=== PATIENT | female | born 1990 | race Caucasian/White ===

== ENCOUNTER → 2021-11-10 | Outpatient (CLI) | payer BC | LOC: M WHC 07:34 | DX: R16.0 Hepatomegaly, not elsewhere classified (principal) ==

== ENCOUNTER → 2022-01-20 | Outpatient (CLI) | payer BC ==
[2022-01-20 20:59] LABS: HEMOGLOBIN A1c 5.1 %
[2022-01-21 12:40] LABS: HIV 1&2 SCREEN CENTAUR NEGATIVE (NEGATIVE)
[2022-01-22 07:12] LABS: HSV TYPE I IgG SPECIFIC <0.91 index (0.00-0.90); HSV TYPE II IgG SPECIFIC <0.91 index (0.00-0.90)
== END ==
LOC: M PLALAB 15:02
DX: Z72.51 High risk heterosexual behavior (principal)

== ENCOUNTER → 2022-01-21 | Outpatient (CLI) | payer BC | LOC: M WUC 08:44 | PROVIDERS: ATTEND Student in an Organized Health Care Education/Training Program | DX: M25.572 Pain in left ankle and joints of left foot (principal) ==

== ENCOUNTER → 2023-02-03 | Outpatient (CLI) | payer OTHER ==
[2023-02-03 14:15] LABS: HEMOGLOBIN 12.3 g/dl (12.0-15.5); MEAN CORPUSCULAR HEMOGLOBIN 29.1 pg (27.0-33.0); MEAN CORPUSCULAR HGB CONC 32.4 g/dl (32.0-36.5); PLATELET COUNT, AUTOMATED 361 10^3/uL (150-450); RED BLOOD COUNT 4.22 10^6/uL (4.00-5.40); WHITE BLOOD COUNT 9.9 10^3/uL (4.0-10.0)
== END ==
LOC: M LAB 13:28
PROVIDERS: ATTEND Internal Medicine
DX: J45.30 Mild persistent asthma, uncomplicated (principal)

== ENCOUNTER 2023-02-14 16:50 | Emergency (ER) | payer OTHER ==
[~2023-02-14] VITALS: Ht 157.5 cm; Wt 99.0 kg
[2023-02-14 16:51] VITALS: BP 129/70; TEMP 98.3; O2SAT 99
[2023-02-14 18:42] LABS: BASO # 0.2 10^3/uL (0.0-0.2); BASO % 1.2 % (0.0-1.0); EOS # 0.2 10^3/uL (0.0-0.5); EOS % 1.8 % (0.0-3.0); HEMATOCRIT 36.5 % (36.0-47.0); HEMOGLOBIN 11.9 g/dl (12.0-15.5); LYMPH # 3.9 10^3/uL (1.5-5.0); LYMPH % 30.5 % (24.0-44.0); MEAN CORPUSCULAR HEMOGLOBIN 29.1 pg (27.0-33.0); MEAN CORPUSCULAR HGB CONC 32.6 g/dl (32.0-36.5); MEAN CORPUSCULAR VOLUME 89.2 fl (80.0-96.0); MONO # 0.6 10^3/uL (0.0-0.8); NEUTROPHILS # 7.8 10^3/uL (1.5-8.5); NEUTROPHILS % 61.2 % (36.0-66.0); PLATELET COUNT, AUTOMATED 357 10^3/uL (150-450); RED BLOOD COUNT 4.09 10^6/uL (4.00-5.40); WHITE BLOOD COUNT 12.7 10^3/uL (4.0-10.0)
[2023-02-14 19:09] LABS: ALBUMIN 3.6 G/DL (3.2-5.2); ALKALINE PHOSPHATASE 69 U/L (46-116); ALT/SGPT 33 U/L (7.0-40); AST/SGOT 14 U/L (<34); BILIRUBIN,TOTAL 0.3 MG/DL (0.3-1.2); BLOOD UREA NITROGEN 12 MG/DL (9-23); CALCIUM LEVEL 9.3 MG/DL (8.5-10.1); CARBON DIOXIDE LEVEL 26 MMOL/L (20-31); CHLORIDE LEVEL 105 MMOL/L (98-107); CREATININE FOR GFR 0.77 MG/DL (0.55-1.30); GLOMERULAR FILTRATION RATE > 60.0 (>60); GLUCOSE, FASTING 93 MG/DL (60-100); POTASSIUM SERUM 3.8 MMOL/L (3.5-5.1); SODIUM LEVEL 138 MMOL/L (136-145)
[2023-02-14 19:17] LABS: HEPATITIS B SURFACE ANTIBODY POSITIVE (POSITIVE)
[2023-02-14 19:42] LABS: HIV 1&2 SCREEN NEGATIVE (NEGATIVE)
[2023-02-14 19:50] LABS: HEPATITIS C VIRUS ABY INDEX 0.02 INDEX (<0.8)
== END 2023-02-14 20:29 | disposition left against medical advice (07) ==
LOC: M ED 16:50
DX: Z53.21 Procedure and treatment not carried out due to patient leaving prior to being seen by health care provider (principal)

== ENCOUNTER → 2023-06-24 | Outpatient (CLI) | payer OTHER ==
[2023-06-24 14:16] LABS: HIV 1&2 SCREEN NEGATIVE (NEGATIVE)
[2023-06-24 14:23] LABS: HEPATITIS C VIRUS ABY INDEX < 0.02 INDEX (<0.8)
== END ==
LOC: M LAB 12:30
PROVIDERS: ATTEND Dentist General Practice
DX: Z11.8 Encounter for screening for other infectious and parasitic diseases (principal)

== ENCOUNTER 2023-09-12 18:37 | Emergency (ER) | payer OTHER ==
[~2023-09-12] VITALS: Ht 157.5 cm; Wt 94.1 kg
[2023-09-12] MEDS ORDERED: HYDR12.55 PO (18:49)
[2023-09-12] MEDS ORDERED: OMEP40CA4 PO (18:49)
[2023-09-12] MEDS ORDERED: LISD50CA PO (18:49)
[2023-09-12] MEDS ORDERED: OLME40TA PO (18:49)
[2023-09-12] MEDS ORDERED: BUPR-69 PO (18:49)
[2023-09-12] MEDS ORDERED: MONT10TA97 PO (18:49)
[2023-09-12] MEDS ORDERED: METF500T13 PO (18:49)
[2023-09-12] MEDS ORDERED: TRAZ-186 PO (18:49)
[2023-09-12] MEDS ORDERED: VRAY4.5C PO (19:50)
[2023-09-12] MEDS ORDERED: LAMI25TA PO (19:50)
[2023-09-12 20:01] LABS: HEMATOCRIT 35.6 % (36.0-47.0); HEMOGLOBIN 12.1 g/dl (12.0-15.5); MEAN CORPUSCULAR HEMOGLOBIN 29.7 pg (27.0-33.0); MEAN CORPUSCULAR VOLUME 87.3 fl (80.0-96.0); PLATELET COUNT, AUTOMATED 346 10^3/uL (150-450); RED BLOOD COUNT 4.08 10^6/uL (4.00-5.40); WHITE BLOOD COUNT 14.7 10^3/uL (4.0-10.0)
[2023-09-12 20:23] LABS: ATYPICAL LYMPH 5 % (0-5); BASOPHILS 1 % (0-1); EOSINOPHILS 3 % (0-3); LYMPHOCYTES 32 % (16-44); MONOCYTES 7 % (0-5); NEUTROPHILS 52 % (28-66); PLATELET ESTIMATE NORMAL (NORMAL)
[2023-09-12 20:32] LABS: CK-MB VALUE MASS < 1.0 NG/ML (<3.6); LIPASE 27 U/L (12-53)
[2023-09-12 20:33] LABS: HCG, SERUM QUALITATIVE NEGATIVE (NEGATIVE)
[2023-09-12 20:34] LABS: CPK CREATINE PHOSPHOKINASE 163 U/L (34-145); MB/CK RELATIVE INDEX 0.61 (< OR =4)
[2023-09-12 20:40] LABS: ALBUMIN 3.6 G/DL (3.2-5.2); ALKALINE PHOSPHATASE 67 U/L (46-116); ALT/SGPT 33 U/L (7.0-40); AST/SGOT 11 U/L (<34); BILIRUBIN,DIRECT < 0.1 MG/DL (<0.4); BILIRUBIN,TOTAL 0.3 MG/DL (0.3-1.2); BLOOD UREA NITROGEN 13 MG/DL (9-23); CALCIUM LEVEL 9.1 MG/DL (8.5-10.1); CARBON DIOXIDE LEVEL 25 MMOL/L (20-31); CHLORIDE LEVEL 108 MMOL/L (98-107); CREATININE FOR GFR 0.82 MG/DL (0.55-1.30); GLOMERULAR FILTRATION RATE > 60.0 (>60); GLUCOSE, FASTING 79 MG/DL (60-100); POTASSIUM SERUM 3.9 MMOL/L (3.5-5.1); SODIUM LEVEL 141 MMOL/L (136-145); TOTAL PROTEIN 6.7 G/DL (5.7-8.2)
[2023-09-12 22:45] VITALS: BP 106/58; TEMP 98; O2SAT 98
== END 2023-09-12 23:00 | disposition home or self-care (01) ==
LOC: M ED 18:37
DX: R07.89 Other chest pain (principal); E11.9 Type 2 diabetes mellitus without complications; K21.9 Gastro-esophageal reflux disease without esophagitis; I10 Essential (primary) hypertension; J45.909 Unspecified asthma, uncomplicated; J44.9 Chronic obstructive pulmonary disease, unspecified; R94.31 Abnormal electrocardiogram [ECG] [EKG]; F32.A Depression, unspecified; F12.10 Cannabis abuse, uncomplicated; Z79.84 Long term (current) use of oral hypoglycemic drugs; Z79.899 Other long term (current) drug therapy

== ENCOUNTER → 2023-12-26 | Outpatient (REF) ==
[~2023-12-26] MED LIST: BUPR-69 PO; HYDR12.55 PO; LAMI25TA PO; LISD50CA PO; METF500T13 PO; MONT10TA97 PO; OLME40TA PO; OMEP40CA4 PO; TRAZ-186 PO; VRAY4.5C PO
== END ==
LOC: M EMP 09:06
PROVIDERS: ATTEND Family Medicine
DX: Z11.52 Encounter for screening for COVID-19 (principal)

== ENCOUNTER → 2023-12-26 | Outpatient (REF) | LOC: M EMP 08:54 | PROVIDERS: ATTEND Family Medicine | DX: Z11.52 Encounter for screening for COVID-19 (principal) ==

== ENCOUNTER → 2024-01-26 | Outpatient (CLI) | payer OTHER ==
[2024-01-26 16:55] LABS: CORTISOL BASELINE 6.9 UG/DL (4.3-22.4)
[2024-01-26 16:59] LABS: BASO # 0.1 10^3/uL (0.0-0.2); EOS # 0.5 10^3/uL (0.0-0.5); EOS % 3.9 % (0.0-3.0); HEMATOCRIT 37.6 % (36.0-47.0); HEMOGLOBIN 12.4 g/dl (12.0-15.5); LYMPH # 3.8 10^3/uL (1.5-5.0); LYMPH % 32.1 % (24.0-44.0); MEAN CORPUSCULAR HEMOGLOBIN 29.7 pg (27.0-33.0); MONO # 0.6 10^3/uL (0.0-0.8); NEUTROPHILS # 6.8 10^3/uL (1.5-8.5); NEUTROPHILS % 57.5 % (36.0-66.0); PLATELET COUNT, AUTOMATED 346 10^3/uL (150-450); RED BLOOD COUNT 4.18 10^6/uL (4.00-5.40); WHITE BLOOD COUNT 11.9 10^3/uL (4.0-10.0)
[2024-01-26 16:59] LABS: FERRITIN 61.5 NG/ML (7.3-270.7)
[2024-01-26 17:00] LABS: IRON (FE) 47 UG/DL (50-170); PROLACTIN 7.19 NG/ML; THYROXINE (T4) 14.1 UG/DL (4.5-10.9)
[2024-01-26 17:01] LABS: ALBUMIN 3.7 G/DL (3.2-5.2); ALKALINE PHOSPHATASE 75 U/L (35-104); ALT/SGPT 31 U/L (7.0-40); AST/SGOT 11 U/L (<34); BILIRUBIN,TOTAL 0.2 MG/DL (0.3-1.2); BLOOD UREA NITROGEN 11 MG/DL (9-23); CALCIUM LEVEL 9.6 MG/DL (8.5-10.1); CARBON DIOXIDE LEVEL 26 MMOL/L (20-31); CHLORIDE LEVEL 106 MMOL/L (98-107); CHOLESTEROL LEVEL 187 MG/DL (<200); CHOLESTEROL RISK RATIO 2.82 (<5); CREATININE FOR GFR 0.73 MG/DL (0.55-1.30); ESTRADIOL < 19.0 PG/ML; GLOMERULAR FILTRATION RATE > 60.0 (>60); GLUCOSE, FASTING 71 MG/DL (60-100); HDL CHOLESTEROL 66.2 MG/DL (>40); LDL CHOLESTEROL 103.8 MG/DL (<100); NON-HDL-C 120.8 MG/DL; PHOSPHORUS LEVEL 3.4 MG/DL (2.5-4.9); POTASSIUM SERUM 4.2 MMOL/L (3.5-5.1); SODIUM LEVEL 140 MMOL/L (136-145); TOTAL 25(OH) VITAMIN D 81.8 NG/ML (20.0-100.0); TOTAL PROTEIN 7.5 G/DL (5.7-8.2); TRIGLYCERIDES LEVEL 85 MG/DL (<150)
[2024-01-26 17:02] LABS: FOLATE 20.82 NG/ML (>5.4); PROGESTERONE 0.35 NG/ML
[2024-01-26 17:03] LABS: VITAMIN B12 LEVEL 877 PG/ML (211-911)
[2024-01-26 17:05] LABS: FREE THYROXINE INDEX 2.9 % (1.3-4.8); T UPTAKE 20.6 % (22.5-37.0); THYROID PEROXIDASE ANTIBODY 39 U/ML (<60.0)
[2024-01-26 17:06] LABS: ERYTHROCYTE SEDIMENTATION RATE 34 mm/hr (0-20)
[2024-01-26 17:14] LABS: THYROID STIMULATING HORMONE 3.281 uIU/ML (0.55-4.78)
[2024-01-26 17:25] LABS: HEMOGLOBIN A1c 4.9 % (4.0-6.0)
[2024-01-28 03:33] LABS: DEHYDROEPIANDROSTERONE SULFATE 250 mcg/dL (19-237)
[2024-01-29 14:27] LABS: EBV AB TO NUCLEAR ANTIGEN > 600.00 U/mL (<18.00); HSV 1 IGG TYPE SPECIFIC < 0.90 index (<0.90); HSV 2 IGG TYPE SPECIFIC < 0.90 index (<0.90)
== END ==
LOC: M LAB 13:47
PROVIDERS: ATTEND Nurse Practitioner Psychiatric/Mental Health
DX: F42.2 Mixed obsessional thoughts and acts (principal); F43.10 Post-traumatic stress disorder, unspecified; F90.0 Attention-deficit hyperactivity disorder, predominantly inattentive type; F33.1 Major depressive disorder, recurrent, moderate; F33.2 Major depressive disorder, recurrent severe without psychotic features; G93.32 Myalgic encephalomyelitis/chronic fatigue syndrome

== ENCOUNTER → 2024-04-17 | Outpatient (CLI) | payer OTHER | LOC: M WHC 13:45 | PROVIDERS: ATTEND Nurse Practitioner Family | DX: N92.6 Irregular menstruation, unspecified (principal); N83.01 Follicular cyst of right ovary; N83.02 Follicular cyst of left ovary ==

== ENCOUNTER → 2024-04-19 | Outpatient (CLI) | payer OTHER | LOC: M RAD 08:57 | PROVIDERS: ATTEND Nurse Practitioner Family | DX: R94.5 Abnormal results of liver function studies (principal); R94.6 Abnormal results of thyroid function studies; K76.0 Fatty (change of) liver, not elsewhere classified ==

== ENCOUNTER → 2024-04-22 | Outpatient (REF) | LOC: M EMP 13:05 | PROVIDERS: ATTEND Family Medicine | DX: Z11.52 Encounter for screening for COVID-19 (principal) ==

== ENCOUNTER → 2024-06-03 | Outpatient (REF) | payer OTHER ==
[2024-06-03 19:09] LABS: APPEARANCE, URINE HAZY (CLEAR); BACTERIA, URINE AUTO 1+ (NEGATIVE); BILIRUBIN, URINE AUTO NEGATIVE (NEGATIVE); BLOOD, URINE BLOOD NEGATIVE (NEGATIVE); COLOR, URINE YELLOW (YELLOW); GLUCOSE, URINE (UA) AUTO NEGATIVE (NEGATIVE); KETONE, URINE AUTO NEGATIVE (NEGATIVE); LEUKOCYTE ESTERASE, URINE AUTO NEGATIVE (NEGATIVE); NITRITE, URINE AUTO NEGATIVE (NEGATIVE); PROTEIN, URINE AUTO NEGATIVE (NEGATIVE); RBC, URINE AUTO 0 /HPF (0-3); SPECIFIC GRAVITY URINE AUTO 1.012 (1.002-1.035); SQUAMOUS EPITHELIAL CELL UR AU 3 /HPF (0-6); UROBILINOGEN, URINE AUTO 0.2 mg/dL (0.0-2.0); WBC, URINE AUTO 0 /HPF (0-3)
== END ==
LOC: M SMT 16:58
PROVIDERS: ATTEND Physician Assistant
DX: N32.81 Overactive bladder (principal)

== ENCOUNTER → 2024-06-25 | Outpatient (REF) | payer OTHER ==
[2024-06-25 15:03] LABS: MAU/CREAT RATIO 2.6 MCG/MG (0.0-30.0)
[2024-06-25 15:16] LABS: THYROID STIMULATING HORMONE 2.634 uIU/ML (0.55-4.78); TOTAL 25(OH) VITAMIN D 96.3 NG/ML (20.0-100.0)
[2024-06-25 15:17] LABS: ALBUMIN 3.6 G/DL (3.2-5.2); ALKALINE PHOSPHATASE 66 U/L (35-104); ALT/SGPT 40 U/L (7.0-40); AST/SGOT 15 U/L (<34); BILIRUBIN,DIRECT < 0.1 MG/DL (<0.4); BILIRUBIN,TOTAL 0.3 MG/DL (0.3-1.2); BLOOD UREA NITROGEN 9 MG/DL (9-23); CALCIUM LEVEL 8.9 MG/DL (8.5-10.1); CARBON DIOXIDE LEVEL 28 MMOL/L (20-31); CHLORIDE LEVEL 108 MMOL/L (98-107); CREATININE FOR GFR 0.75 MG/DL (0.55-1.30); GLOMERULAR FILTRATION RATE > 60.0 (>60); GLUCOSE, FASTING 77 MG/DL (60-100); SODIUM LEVEL 143 MMOL/L (136-145); TOTAL PROTEIN 7.1 G/DL (5.7-8.2)
[2024-06-25 15:37] LABS: HEMOGLOBIN A1c 4.5 % (4.0-6.0)
== END ==
LOC: M LAB REF 12:32
PROVIDERS: ATTEND Pediatrics
DX: I10 Essential (primary) hypertension (principal)